=== PATIENT | male | born 1965 | race Caucasian/White ===

== ENCOUNTER 2018-03-25 08:02 | Emergency (ER) | payer OTHER ==
[~2018-03-25] VITALS: Ht 167.6 cm; Wt 86.2 kg
[~2018-03-25 08:02] MED LIST: ASPI81CH PO; CEPH500 PO; CETI10 PO; DESO.25TC TOP; INSULANPEN SC; LISI5 PO; METF500 PO; METO50 PO; Percocet 10-321 EACH PO
[2018-03-25 09:36] LABS: BASOPHILS ABSOLUTE AUTO 0.01 K/mm3 (0.00-0.23); BASOPHILS PERCENT AUTO 0 % (0-2); EOSINOPHILS ABSOLUTE AUTO 0.01 K/mm3 (0.00-0.68); EOSINOPHILS PERCENT AUTO 0 % (0-6); Hematocrit 25.6 % (37.0-53.0); Hemoglobin 9.5 g/dL (13.5-17.5); IMMATURE GRAN ABSOLUTE AUTO 0.05 K/mm3 (0.00-0.10); IMMATURE GRAN PERCENT AUTO 1 % (0-1); LYMPHOCYTES ABSOLUTE AUTO 0.22 K/mm3 (0.84-5.20); LYMPHOCYTES PERCENT AUTO 2 % (21-46); MONOCYTES ABSOLUTE AUTO 0.94 K/mm3 (0.16-1.47); MONOCYTES PERCENT AUTO 9 % (4-13); Mean Corpuscular HGB 32.5 pg (26.0-34.0); Mean Corpuscular HGB Conc 37.1 g/dL (31.5-36.5); Mean Corpuscular Volume 88 fL (80-100); Mean Platelet Volume 9.1 fL (9.1-12.4); NEUTROPHILS ABSOLUTE AUTO 9.57 K/mm3 (1.96-9.15); NEUTROPHILS PERCENT AUTO 89 % (41-73); Platelet Count 148 K/mm3 (150-400); RDW Coefficient Variation 10.9 % (11.7-14.2); RDW Standard Deviation 34.9 fL (35.1-46.3); Red Blood Cell Count 2.92 M/mm3 (4.30-5.90)
[2018-03-25 09:49] LABS: Albumin, Blood 2.6 g/dL (3.4-5.0); Albumin/Globulin Ratio 0.5 (0.8-1.8); Bilirubin, Total 0.2 mg/dL (0.1-1.0); Bun/Creatinine Ratio 27.8 (12.0-20.0); Calcium, Blood 8.2 mg/dL (8.5-10.1); Creatinine, Blood 2.48 mg/dL (0.60-1.20); Globulin, Blood 5.2 g/dL (2.2-4.0); Potassium, Blood 4.9 mmol/L (3.5-5.5); Total Protein, Blood 7.8 g/dL (6.4-8.2)
== END 2018-03-25 13:39 | disposition short-term general hospital (02) ==
LOC: ER 08:02
PROVIDERS: Emergency Medicine
DX: N13.30 Unspecified hydronephrosis (principal); N19 Unspecified kidney failure; Z79.899 Other long term (current) drug therapy; Z79.82 Long term (current) use of aspirin; Z79.84 Long term (current) use of oral hypoglycemic drugs; E11.9 Type 2 diabetes mellitus without complications; I10 Essential (primary) hypertension; F17.220 Nicotine dependence, chewing tobacco, uncomplicated
CPT/HCPCS: 74176; 80053; 85025; 99285

== ENCOUNTER 2018-12-08 05:55 | Emergency (ER) | payer OTHER ==
[~2018-12-08] VITALS: Ht 167.6 cm; Wt 77.1 kg
[2018-12-08] MEDS ORDERED: Prinivil10 MG PO (06:14)
[2018-12-08] MEDS ORDERED: TAMS.4ER PO (06:14)
[2018-12-08] MEDS ORDERED: INSULANPEN SC (06:14)
[2018-12-08 06:57] LABS: BASOPHILS ABSOLUTE AUTO 0.03 K/mm3 (0.00-0.23); BASOPHILS PERCENT AUTO 1 % (0-2); EOSINOPHILS ABSOLUTE AUTO 0.13 K/mm3 (0.00-0.68); EOSINOPHILS PERCENT AUTO 2 % (0-6); Hematocrit 34.4 % (37.0-53.0); Hemoglobin 11.5 g/dL (13.5-17.5); IMMATURE GRAN ABSOLUTE AUTO 0.02 K/mm3 (0.00-0.10); IMMATURE GRAN PERCENT AUTO 0 % (0-1); LYMPHOCYTES ABSOLUTE AUTO 1.53 K/mm3 (0.84-5.20); LYMPHOCYTES PERCENT AUTO 29 % (21-46); MONOCYTES ABSOLUTE AUTO 0.67 K/mm3 (0.16-1.47); MONOCYTES PERCENT AUTO 13 % (4-13); Mean Corpuscular HGB 31.7 pg (26.0-34.0); Mean Corpuscular HGB Conc 33.4 g/dL (31.5-36.5); Mean Corpuscular Volume 95 fL (80-100); Mean Platelet Volume 10.9 fL (9.1-12.4); NEUTROPHILS ABSOLUTE AUTO 2.96 K/mm3 (1.96-9.15); NEUTROPHILS PERCENT AUTO 55 % (41-73); Platelet Count 111 K/mm3 (150-400); RDW Coefficient Variation 12.3 % (11.7-14.2); RDW Standard Deviation 42.7 fL (35.1-46.3); Red Blood Cell Count 3.63 M/mm3 (4.30-5.90); White Blood Cell Count 5.34 K/mm3 (4.00-11.30)
[2018-12-08 07:18] LABS: Alanine Aminotransfer (ALT/SGP 26 U/L (12-78); Albumin, Blood 3.2 g/dL (3.4-5.0); Albumin/Globulin Ratio 0.8 (0.8-1.8); Alk Phos 143 U/L (50-136); Anion Gap 9 mmol/L (6-16); Aspartate Aminotrans (AST/SGOT 27 U/L (12-37); Bilirubin, Total 0.2 mg/dL (0.1-1.0); Blood Urea Nitrogen 19 mg/dL (8-24); Bun/Creatinine Ratio 22.2 (12.0-20.0); CO2, Blood 21 mmol/L (21-32); Calcium, Blood 7.8 mg/dL (8.5-10.1); Chloride, Blood 115 mmol/L (98-108); Creatinine, Blood 0.85 mg/dL (0.60-1.20); Ethanol (Alcohol), Blood, Med 281 mg/dL; Globulin, Blood 3.8 g/dL (2.2-4.0); Glomerular Filtration Rate >60 (60-); Glucose, Blood 329 mg/dL (70-99); Sodium, Blood 145 mmol/L (136-145); Troponin I <0.015 ng/mL (0.000-0.040)
== END 2018-12-08 09:14 | disposition left against medical advice (07) ==
LOC: ER 05:55
PROVIDERS: Emergency Medicine
DX: S06.9X9A Unspecified intracranial injury with loss of consciousness of unspecified duration, initial encounter (principal); R55 Syncope and collapse; F10.129 Alcohol abuse with intoxication, unspecified; W18.30XA Fall on same level, unspecified, initial encounter; E11.9 Type 2 diabetes mellitus without complications; I10 Essential (primary) hypertension; Z79.899 Other long term (current) drug therapy; Z79.4 Long term (current) use of insulin; Z79.84 Long term (current) use of oral hypoglycemic drugs
CPT/HCPCS: 70450; 71046; 72100; 72125; 80053; 84484; 85025; 96360; 96361; 99284-25; G0480; J7030

== ENCOUNTER 2019-06-07 12:01 | Inpatient (IN) | payer OTHER ==
[~2019-06-07] VITALS: Ht 167.6 cm; Wt 79.2 kg
[~2019-06-07 12:01] MED LIST changes: +Prinivil10 MG PO; +TAMS.4ER PO
[2019-06-07 12:38] LABS: BASOPHILS ABSOLUTE AUTO 0.01 K/mm3 (0.00-0.23); BASOPHILS PERCENT AUTO 0 % (0-2); EOSINOPHILS ABSOLUTE AUTO 0.02 K/mm3 (0.00-0.68); EOSINOPHILS PERCENT AUTO 0 % (0-6); Hematocrit 20.4 % (37.0-53.0); IMMATURE GRAN ABSOLUTE AUTO 0.09 K/mm3 (0.00-0.10); IMMATURE GRAN PERCENT AUTO 1 % (0-1); LYMPHOCYTES ABSOLUTE AUTO 0.63 K/mm3 (0.84-5.20); LYMPHOCYTES PERCENT AUTO 9 % (21-46); MONOCYTES ABSOLUTE AUTO 0.89 K/mm3 (0.16-1.47); MONOCYTES PERCENT AUTO 13 % (4-13); Mean Corpuscular HGB 32.4 pg (26.0-34.0); Mean Corpuscular HGB Conc 34.3 g/dL (31.5-36.5); Mean Corpuscular Volume 94 fL (80-100); Mean Platelet Volume 10.6 fL (9.1-12.4); NEUTROPHILS ABSOLUTE AUTO 5.17 K/mm3 (1.96-9.15); NEUTROPHILS PERCENT AUTO 76 % (41-73); Platelet Count 166 K/mm3 (150-400); RDW Coefficient Variation 11.9 % (11.7-14.2); RDW Standard Deviation 40.4 fL (35.1-46.3); Red Blood Cell Count 2.16 M/mm3 (4.30-5.90); White Blood Cell Count 6.81 K/mm3 (4.00-11.30)
[2019-06-07 12:52] LABS: Alanine Aminotransfer (ALT/SGP 15 U/L (12-78); Albumin, Blood 2.6 g/dL (3.4-5.0); Albumin/Globulin Ratio 0.6 (0.8-1.8); Alk Phos 191 U/L (50-136); Aspartate Aminotrans (AST/SGOT 10 U/L (12-37); Bilirubin, Total 0.3 mg/dL (0.1-1.0); Blood Urea Nitrogen 31 mg/dL (8-24); CO2, Blood 21 mmol/L (21-32); Calcium, Blood 8.3 mg/dL (8.5-10.1); Chloride, Blood 86 mmol/L (98-108); Creatinine, Blood 1.35 mg/dL (0.60-1.20); Globulin, Blood 4.3 g/dL (2.2-4.0); Glomerular Filtration Rate 58 (60-); Potassium, Blood 5.3 mmol/L (3.5-5.5); Total Protein, Blood 6.9 g/dL (6.4-8.2)
[2019-06-07 12:53] LABS: Source, Urine Clean Catch
[2019-06-07 12:54] LABS: Anion Gap 12 mmol/L (6-16); Glucose, Blood 936 mg/dL (70-99); Sodium, Blood 119 mmol/L (136-145)
[2019-06-07 12:57] LABS: Beta-hydroxybutyrate 30.7 mg/dL (0.2-2.8); Troponin I <0.015 ng/mL (0.000-0.040)
[2019-06-07 12:58] LABS: Appearance, Urine Hazy (Clear); Bilirubin, Urine Neg (Neg); Blood, Urine 3+ (Neg); Color, Urine Yellow (P-Yellow); Glucose Qualitative, Urine 4+ (Neg); Ketones, Urine 2+ (Neg); Leukocyte Esterase, Urine 3+ (Neg); Nitrite, Urine Neg (Neg); Protein, Urine 1+ (Neg); Specific Gravity, Urine 1.005 (1.003-1.022); Urobilinogen, Urine NORM (Normal)
[2019-06-07 13:04] LABS: International Normalized Ratio 0.97; Prothrombin Time Results 10.3 Sec (9.7-11.5)
[2019-06-07 13:14] LABS: Squamous Epithelial Cells Few /hpf (Few); White Blood Cells, Urine TNTC /hpf (0-5)
[2019-06-07 13:15] LABS: Bacteria Mod /hpf
[2019-06-07 17:05] LABS: Hemoglobin 6.2 g/dL (13.5-17.5)
[2019-06-07 17:07] LABS: Hematocrit 17.2 % (37.0-53.0)
[2019-06-07 17:24] LABS: Anion Gap 7 mmol/L (6-16); Blood Urea Nitrogen 27 mg/dL (8-24); Bun/Creatinine Ratio 22.5 (12.0-20.0); CO2, Blood 22 mmol/L (21-32); Calcium, Blood 8.1 mg/dL (8.5-10.1); Chloride, Blood 101 mmol/L (98-108); Glomerular Filtration Rate >60 (60-); Glucose, Blood 440 mg/dL (70-99)
[2019-06-07 17:36] LABS: Sodium, Blood 130 mmol/L (136-145)
--- NOTE | 2019-06-07 18:12 | NUR ---
ADMISSION / SHIFT SUMMARY: REPORT RECEIVED FROM TYLER Lainez RN IN ED. PT ARRIVED TO ICU-03 AT APPROX 1500, TX FROM GURNEY TO BED W/ 4 ASSIST & SLIDER SHEET. PT STS HAVING SOME CHRONIC BACK PAIN THAT HAS BEEN WORSENED BY LAYING ON GURNEY THIS AFTERNOON. INSULIN DRIP INFUSING AT 5 UNITS/HR ON ARRIVAL. CBG CHECKS Q1H, INSULIN TITRATION DOCUMENTED IN FLOWSHEET. PT HAS BEEN ASYMPTOMATIC OF SLIGHT HYPOTENSION SINCE ARRIVAL, SBP 80-90s. FIRST UNIT OF PRBC's INFUSING AT THIS TIME. LAB DRAWS TO BE COMPLETED AFTER TRANSFUSION COMPLETED. CT ABD & PELVIS COMPLETED, RESULTS CONCERNING FOR URINARY RETENTION. WILL BLADDER SCAN PT & NOTIFY DR MENESES. WILL CONTINUE TO MONITOR & REPORT OFF TO ONCOMING RN.
[2019-06-07 20:16] LABS: Anion Gap 6 mmol/L (6-16); Blood Urea Nitrogen 23 mg/dL (8-24); Bun/Creatinine Ratio 19.8 (12.0-20.0); CO2, Blood 23 mmol/L (21-32); Calcium, Blood 7.8 mg/dL (8.5-10.1); Chloride, Blood 106 mmol/L (98-108); Creatinine, Blood 1.16 mg/dL (0.60-1.20); Glomerular Filtration Rate >60 (60-); Glucose, Blood 262 mg/dL (70-99); Potassium, Blood 3.7 mmol/L (3.5-5.5); Sodium, Blood 135 mmol/L (136-145)
--- NOTE | 2019-06-07 20:49 | NUR ---
ASSUMED CARE OF PT, REPORT RCV'D FROM MARIS BOONE. PT ALERT/ORIENTED SITTING UP IN BED. PT APPEARS PALE IN COLOR AND COMPLAINS OF MID-LOWER BACK PAIN. PT REPORTS THAT HE HAS CHRONIC BACK PAIN BUT THAT THE PAIN HAS INTENSIFIED OVER THE PREVIOUS 2 DAYS. PT RECEIVING UNIT 2 OF 2 PRBC'S. CBG 269 ON 3 UNITS INSULIN, WILL SWITCH TO HOME LANTUS DOSE WHEN BG<250 AND D/C INSULIN GTT 2 HOURS AFTER. PT HAS PERIODS OF HYPOTENSION WITH MAP MAINTAINED ABOVE 65, WILL CONTINUE TO MONITOR. BT+ IN ALL 4-QUADRANTS, PT DENIES PAIN/TENDERNESS WITH PALPATION. WILL BLADDER SCAN Q6H AND STRAIGHT CATH PER DR. MENESES'S ORDERS. SEE FULL SHIFT ASSESSMENT.
[2019-06-08 00:16] LABS: Hematocrit 22.5 % (37.0-53.0); Hemoglobin 7.9 g/dL (13.5-17.5)
[2019-06-08 01:04] LABS: Anion Gap 10 mmol/L (6-16); Blood Urea Nitrogen 21 mg/dL (8-24); Bun/Creatinine Ratio 19.6 (12.0-20.0); CO2, Blood 21 mmol/L (21-32); Calcium, Blood 7.6 mg/dL (8.5-10.1); Chloride, Blood 111 mmol/L (98-108); Creatinine, Blood 1.07 mg/dL (0.60-1.20); Glomerular Filtration Rate >60 (60-); Glucose, Blood 130 mg/dL (70-99); Potassium, Blood 3.9 mmol/L (3.5-5.5); Sodium, Blood 142 mmol/L (136-145)
[2019-06-08 05:24] LABS: Source, Urine Catheter
[2019-06-08 05:27] LABS: Appearance, Urine Turbid (Clear); Bilirubin, Urine Neg (Neg); Blood, Urine 5+ (Neg); Color, Urine Yellow (P-Yellow); Glucose Qualitative, Urine 4+ (Neg); Ketones, Urine 2+ (Neg); Leukocyte Esterase, Urine 3+ (Neg); Nitrite, Urine Neg (Neg); Protein, Urine 3+ (Neg); Specific Gravity, Urine 1.015 (1.003-1.022); Urobilinogen, Urine NORM (Normal)
[2019-06-08 05:36] LABS: White Blood Cells, Urine TNTC /hpf (0-5)
[2019-06-08 05:37] LABS: Bacteria Many /hpf; Red Blood Cells, Urine 0-2 /hpf (0-2); Squamous Epithelial Cells Not Seen /hpf (Few)
[2019-06-08 06:23] LABS: Hematocrit 22.7 % (37.0-53.0)
--- NOTE | 2019-06-08 06:32 | NUR ---
SHIFT SUMMARY PT STABLE T/O SHIFT. INSULIN GTT OFF @2300, MIDNIGHT CBG 127, 0600 CBG 207. 0000 BLADDER SCAN REVEALED >547 URINE RETAINED AFTER PT VOIDED 700 ML. URINE IS TURBID/PURULENT. COUDE' USED TO STRAIGHT CATH PT D/T PT'S BPH AND PT'S REPORT THAT HE HAS HAD DIFFICULTY WITH URINARY CATHETER INSERTION. CALL PLACED TO DR. HILL REGARDING DIFFICULTY IN INSERTING COUDE' AND APPEARANCE OF PT'S URINE. ORDER FOR WRIGHT PLACEMENT AND URINE SAMPLE RECEIVED. PT CONTINUES TO C/O BACK PAIN AND WAS TREATED WITH ULTRAM ON 2 OCCASIONS WITH MINIMAL RELIEF. PT WAS FOUND TO BE CHEWING TOBACCO IN BED AND WAS REMINDED OF THE RISKS ASSOCIATED WITH CHEWING, ESPECIALLY GIVEN HIS CURRENT MEDICAL STATUS. PT STATES UNDERSTANDING AND REPLIED "I ONLY PUT A LITTLE IN". WILL REPORT TO DAYSHIFT NURSE.
--- NOTE | 2019-06-08 07:45 | NUR ---
IN ICU ROOM 3 . VSS PRE PROCEDURES BEING DONE AT THIS TIME
--- NOTE | 2019-06-08 07:52 | NUR ---
ASSUMED CARE / DAY SURGERY: REPORT RECEIVED FROM MONIKA Desai RN. ASSUMED CARE OF THIS PT AT APPROX 0700. ON ASSESSMENT, THE PT IS AWAKE, A&O. HE IS COOPERATIVE W/ CARE. PT STS CONTINUED BACK PAIN THAT IMPROVED SLIGHTLY DURING THE NIGHT, BUT HAS WORSENED AGAIN THIS AM. PT HAD COUDE WRIGHT PLACED BY NOC SHIFT RN FOR CONTINUED HIGH POST-VOID RESIDUALS NOTED W/ BLADDER SCAN. HE CONTINUES ON RA W/ O2 SATS > 92%. MONITOR SHOWS NSR W/ HR 80s. BP STABLE. CALL FROM [facility] DAY SURGERY RN. PLAN IS TO COMPLETE AN UPPER ENDOSCOPY THIS AM PER DR SALCIDO. DAY SURGERY TEAM IS AT BEDSIDE & COMPLETING SETUP FOR PROCEDURE. PROVIDER LOLY IS AT BEDSIDE COMPLETING INFORMED CONSENT. DR SANTANA TO BE ANESTHESIOLOGIST FOR PROCEDURE. WILL CONTINUE TO MONITOR & PROVIDE ASSISTANCE PRN/
--- NOTE | 2019-06-08 08:24 | NUR ---
06/08/19 0824 Go Biswas Bite Block PlacedHistory, Chart, Medications and Allergies reviewed before start of procedure.MONITOR INTACT WITH CONTINUOUS PULSE OXIMETRY AND INTERMITTENT BP.O2 VIA N/C INTACT THROUGHOUT SEDATION/PROCEDURE.See Anesthesia record.
--- NOTE | 2019-06-08 08:49 | NUR ---
DR MENESES / DR SALCIDO: PROVIDER AT BEDSIDE TO SEE PT, PROCEDURE CURRENTLY IN PROGRESS. SHE STS THAT IF EGD IS UNREMARKABLE, PT MAY BE PCU STATUS IF OKAY W/ DR SALCIDO. PROCEDURE HAS BEEN COMPLETED. DR SALCIDO STS NO BLEEDING AREAS HAVE BEEN FOUND. OCTREOTIDE DRIP TO BE D/C'd, PROTONIX DRIP D/C'd & ORDERED IVP BID. CLEAR LIQUID DIET ORDERED & PT IS OKAY TO TRANSFER TO PCU STATUS. WILL CONTINUE TO MONITOR & UPDATE NEEDED.
--- NOTE | 2019-06-08 15:50 | NUR ---
PT TRANSFERRED OUT TO U-12. PAOLO TO REPORT OFF TO REC'CHASE POLLOCK.
--- NOTE | 2019-06-08 16:30 | NUR ---
ASSUMED CARE PT ALERT AND ORIENTED. VS STABLE. PT DENIES ANY N/V. BP STABLE. CBG OF 407. DR. MENESES CALLED AND ORDERS FOR SLIDING SCALE COVERAGE PLACED. PT ORIENTED TO UNIT. PT DENIES ANY PAIN. WILL CONTINUE TO MONITOR.
[2019-06-08 18:04] LABS: Hematocrit 25.6 % (37.0-53.0); Hemoglobin 8.7 g/dL (13.5-17.5)
--- NOTE | 2019-06-08 21:42 | NUR ---
PROVIDER. CB 429. ORDERED HUMAOLG AND LANTUS GIVEN. DR DUFFY CALLED REGARDING THIS LEVEL. DOES NOT PLACE NEW ORDER. STATES TO RECHECK IN AM.
--- NOTE | 2019-06-09 00:47 | NUR ---
PROVIDER 0005 CBG RECHECKED, 316. ROMEO NOTIFIED, ORDERS PLACED TO INCREASE PT'S SLIDING SCALE TO HIGH SS AND TO DOSE PT NOW WITH THAT SCALE. STATES TO RECHECK SCHEDULED ACHS.
[2019-06-09 03:30] LABS: Hematocrit 23.9 % (37.0-53.0); Hemoglobin 8.2 g/dL (13.5-17.5)
--- NOTE | 2019-06-09 04:32 | NUR ---
END OF SHIFT SUMMARY NO ACUTE CHANGES THIS SHIFT. VSS. PT VERY PLEASANT AND COOPERATIVE. HR REMAINS SINUS RHTYHM. REMAINS ON RA. PICC PATENT AND PULLS BLOOD. PT HAS NOT HAD ANY INCIDENCE OF BLEEDING FROM MOUTH THIS SHIFT. WRIGHT PRESENT AND CONTINUES TO DRAIN. PT HAS REQUIRED EXTRA HUMALOG COVERAGE THIS SHIFT AND HE HAS NOW BEEN PLACED ON A HIGH SLIDING SCALE INSTEAD OF MEDIUM SS. OTHER THAN THIS, PT USES CALL LIGHT APPROPRIATELY AND HAS BEEN ATTEMPTING TO SLEEP WITH DOOR CLOSED. CALL LIGHT WOTHIN REACH AND BED IN LOWEST POSITION. WILL CONTINUE TO MONITOR PT UNTIL SHIFT CHANGE.
[2019-06-09 05:16] LABS: Hematocrit 23.6 % (37.0-53.0); Hemoglobin 8.3 g/dL (13.5-17.5)
[2019-06-09 05:45] LABS: Anion Gap 6 mmol/L (6-16); Blood Urea Nitrogen 12 mg/dL (8-24); Bun/Creatinine Ratio 12.8 (12.0-20.0); CO2, Blood 24 mmol/L (21-32); Calcium, Blood 8.4 mg/dL (8.5-10.1); Chloride, Blood 109 mmol/L (98-108); Creatinine, Blood 0.94 mg/dL (0.60-1.20); Glomerular Filtration Rate >60 (60-); Glucose, Blood 90 mg/dL (70-99); Sodium, Blood 139 mmol/L (136-145)
--- NOTE | 2019-06-09 09:42 | NUR ---
DR MENESES BEEN TO SEE PT. REPORTS TO Mariana/Shruti WRIGHT.
--- NOTE | 2019-06-09 10:25 | NUR ---
KYLE HAY'Mariana PER DR MENESES.
[2019-06-09] MEDS ORDERED: Humalog100 UNIT/1 SC (13:47)
[2019-06-09] MEDS ORDERED: PANT40 PO (13:48)
[2019-06-09] MEDS ORDERED: Amoxicillin500 MG PO (13:56)
--- NOTE | 2019-06-09 15:25 | NUR ---
DISCHARGE: PT AND GREGG REPORTS UNDERSTANDING OF DISCHARGE INSTRUCTIONS. PT PICC LINE DC'D BY PRECIPITATE WASHER. PT MEDS FAXED TO PHARMACY OF PT'S CHOICE. PT SENT WITH [facility]CR[facility]TS FOR CBG MACHINE AND STRIPS. PT EATING AND DRINKING WELL. UP IND WITH STEADY GAIT. PT VOIDING AFTER HAVING CATHETER DC'D.
== END 2019-06-09 15:23 | disposition home or self-care (01) | DRG 811 ==
LOC: ER 12:01 → ICUE 13:57 → PCU 13:57 → ICUW 13:57 → ICUE 14:57 → PCU 06-08 15:57
PROVIDERS: Emergency Medicine; Internal Medicine; Internal Medicine Gastroenterology; ADMIT Internal Medicine
PROC: 30233N1 Transfusion of Nonautologous Red Blood Cells into Peripheral Vein, Percutaneous Approach (ICD-10-PCS; 2019-06-07)
PROC: 0DJ08ZZ Inspection of Upper Intestinal Tract, Via Natural or Artificial Opening Endoscopic (ICD-10-PCS; principal; 2019-06-08 08:00)
DX: D62 Acute posthemorrhagic anemia (principal); E11.10 Type 2 diabetes mellitus with ketoacidosis without coma; N17.9 Acute kidney failure, unspecified; E87.1 Hypo-osmolality and hyponatremia; N39.0 Urinary tract infection, site not specified; K76.6 Portal hypertension; N13.30 Unspecified hydronephrosis; J43.9 Emphysema, unspecified; N40.0 Benign prostatic hyperplasia without lower urinary tract symptoms; Z79.4 Long term (current) use of insulin; I10 Essential (primary) hypertension; E11.65 Type 2 diabetes mellitus with hyperglycemia; K29.80 Duodenitis without bleeding; K70.30 Alcoholic cirrhosis of liver without ascites; R16.1 Splenomegaly, not elsewhere classified; E86.0 Dehydration; N13.9 Obstructive and reflux uropathy, unspecified
CPT/HCPCS: 36415; 36430; 36569; 51701; 51703; 71046; 74176; 80048; 80053; 81001; 82010; 82272; 82800; 82947; 83605; 84484; 85014; 85018; 85025; 85610; 85730; 86850; 86900; 86901; 86923; 87040; 87086; 87147; 93005; 93010; 96361; 96365; 99285-25; A9270; C1751; C9113; J0696; J1815; J2250; J2354; J2704; J7030; J7050; J7120; P9016

== ENCOUNTER 2020-10-19 13:25 | Emergency (ER) | payer OTHER ==
[~2020-10-19] VITALS: Ht 167.6 cm; Wt 78.0 kg
[~2020-10-19 13:25] MED LIST changes: +Amoxicillin500 MG PO; +Humalog100 UNIT/1 SC; +PANT40 PO
[2020-10-19 16:04] LABS: Glucose, Blood 657 mg/dL (70-99)
== END 2020-10-19 17:12 | disposition home or self-care (01) ==
LOC: ER 13:25
PROVIDERS: Physician Assistant
DX: S00.81XA Abrasion of other part of head, initial encounter (principal); I10 Essential (primary) hypertension; E11.9 Type 2 diabetes mellitus without complications; Z79.899 Other long term (current) drug therapy; Z79.4 Long term (current) use of insulin; Z91.14 Patient's other noncompliance with medication regimen; W01.198A Fall on same level from slipping, tripping and stumbling with subsequent striking against other object, initial encounter
CPT/HCPCS: 70450; 82947; 99284-25

== ENCOUNTER 2021-04-27 18:47 | Emergency (ER) | payer OTHER ==
[~2021-04-27] VITALS: Ht 165.1 cm; Wt 72.6 kg
[2021-04-27 19:27] LABS: BASOPHILS ABSOLUTE AUTO 0.03 K/mm3 (0.00-0.23); BASOPHILS PERCENT AUTO 0 % (0-2); EOSINOPHILS ABSOLUTE AUTO 0.16 K/mm3 (0.00-0.68); EOSINOPHILS PERCENT AUTO 2 % (0-6); Hematocrit 30.5 % (37.0-53.0); IMMATURE GRAN ABSOLUTE AUTO 0.02 K/mm3 (0.00-0.10); IMMATURE GRAN PERCENT AUTO 0 % (0-1); LYMPHOCYTES ABSOLUTE AUTO 0.87 K/mm3 (0.84-5.20); LYMPHOCYTES PERCENT AUTO 12 % (21-46); MONOCYTES ABSOLUTE AUTO 0.98 K/mm3 (0.16-1.47); MONOCYTES PERCENT AUTO 13 % (4-13); Mean Corpuscular HGB 34.3 pg (26.0-34.0); Mean Corpuscular HGB Conc 36.1 g/dL (31.5-36.5); Mean Corpuscular Volume 95 fL (80-100); Mean Platelet Volume 12.1 fL (9.1-12.4); NEUTROPHILS ABSOLUTE AUTO 5.52 K/mm3 (1.96-9.15); NEUTROPHILS PERCENT AUTO 73 % (41-73); Platelet Count 113 K/mm3 (150-400); Red Blood Cell Count 3.21 M/mm3 (4.30-5.90); White Blood Cell Count 7.58 K/mm3 (4.00-11.30)
[2021-04-27 19:38] LABS: Base Excess Venous -1.4 mmol/L; Bicarbonate Venous 23.7 mmol/L (24.0-30.0); PO2 Venous 161 mmHg (38-42); pH Blood Venous 7.45 (7.34-7.37)
[2021-04-27 19:43] LABS: Alanine Aminotransfer (ALT/SGP 49 U/L (12-78); Albumin, Blood 3.5 g/dL (3.4-5.0); Albumin/Globulin Ratio 0.8 (0.8-1.8); Alk Phos 132 U/L (50-136); Anion Gap 13 mmol/L (6-16); Aspartate Aminotrans (AST/SGOT 43 U/L (12-37); Bilirubin, Total 0.8 mg/dL (0.1-1.0); Blood Urea Nitrogen 45 mg/dL (8-24); Bun/Creatinine Ratio 22.1 (12.0-20.0); CO2, Blood 21 mmol/L (21-32); Calcium, Blood 9.2 mg/dL (8.5-10.1); Chloride, Blood 98 mmol/L (98-108); Creatinine, Blood 2.04 mg/dL (0.60-1.20); Globulin, Blood 4.3 g/dL (2.2-4.0); Glomerular Filtration Rate 34 (60-); Glucose, Blood 515 mg/dL (70-99); Potassium, Blood 3.8 mmol/L (3.5-5.5); Sodium, Blood 132 mmol/L (136-145); Total Protein, Blood 7.8 g/dL (6.4-8.2)
[2021-04-27 19:47] LABS: Ethanol (Alcohol), Blood, Med <3 mg/dL
[2021-04-27 20:35] LABS: U Amphetamine Screen Not Detected; U Barbituate Screen Not Detected; U Benzodiazapine Screen Not Detected; U Buprenorphine Screen Not Detected; U Cannabinoids Screen Not Detected; U Cocaine Screen Not Detected; U Methadone Screen Not Detected; U Methamphetamine Screen Not Detected; U Opiates Screen Not Detected; U Oxycodone Screen Not Detected; U Phencyclidine Screen Not Detected; U Propoxyphene Screen Not Detected
== END 2021-04-27 21:19 | disposition home or self-care (01) ==
LOC: ER 18:47
PROVIDERS: Emergency Medicine
DX: E11.65 Type 2 diabetes mellitus with hyperglycemia (principal); I10 Essential (primary) hypertension
CPT/HCPCS: 36415; 80053; 82803; 82947; 85025; 93005; 93010; 99285-25; G0480; J1815; J7030

== ENCOUNTER 2021-04-29 22:00 | Emergency (ER) | payer OTHER ==
[~2021-04-29] VITALS: Ht 167.6 cm; Wt 77.1 kg
[2021-04-29 22:39] LABS: Base Excess Venous -4.7 mmol/L; Bicarbonate Venous 21.2 mmol/L (24.0-30.0); PCO2 Venous 30.8 mmHg (38-42); PO2 Venous 146 mmHg (38-42); pH Blood Venous 7.42 (7.34-7.37)
[2021-04-29 22:43] LABS: BASOPHILS ABSOLUTE AUTO 0.03 K/mm3 (0.00-0.23); BASOPHILS PERCENT AUTO 1 % (0-2); EOSINOPHILS ABSOLUTE AUTO 0.14 K/mm3 (0.00-0.68); EOSINOPHILS PERCENT AUTO 3 % (0-6); Hematocrit 29.6 % (37.0-53.0); Hemoglobin 10.4 g/dL (13.5-17.5); IMMATURE GRAN ABSOLUTE AUTO 0.02 K/mm3 (0.00-0.10); IMMATURE GRAN PERCENT AUTO 0 % (0-1); LYMPHOCYTES PERCENT AUTO 13 % (21-46); MONOCYTES ABSOLUTE AUTO 0.64 K/mm3 (0.16-1.47); MONOCYTES PERCENT AUTO 12 % (4-13); Mean Corpuscular HGB 34.4 pg (26.0-34.0); Mean Corpuscular HGB Conc 35.1 g/dL (31.5-36.5); Mean Corpuscular Volume 98 fL (80-100); Mean Platelet Volume 11.6 fL (9.1-12.4); NEUTROPHILS ABSOLUTE AUTO 3.96 K/mm3 (1.96-9.15); NEUTROPHILS PERCENT AUTO 72 % (41-73); Platelet Count 109 K/mm3 (150-400); RDW Coefficient Variation 12.2 % (11.7-14.2); RDW Standard Deviation 44.2 fL (35.1-46.3); Red Blood Cell Count 3.02 M/mm3 (4.30-5.90); White Blood Cell Count 5.49 K/mm3 (4.00-11.30)
[2021-04-29 23:02] LABS: Alanine Aminotransfer (ALT/SGP 51 U/L (12-78); Albumin, Blood 3.3 g/dL (3.4-5.0); Albumin/Globulin Ratio 0.8 (0.8-1.8); Alk Phos 128 U/L (50-136); Anion Gap 13 mmol/L (6-16); Aspartate Aminotrans (AST/SGOT 41 U/L (12-37); Bilirubin, Total 0.7 mg/dL (0.1-1.0); Blood Urea Nitrogen 44 mg/dL (8-24); Bun/Creatinine Ratio 36.7 (12.0-20.0); CO2, Blood 20 mmol/L (21-32); Calcium, Blood 9.3 mg/dL (8.5-10.1); Chloride, Blood 106 mmol/L (98-108); Globulin, Blood 4.3 g/dL (2.2-4.0); Glomerular Filtration Rate >60 (60-); Glucose, Blood 354 mg/dL (70-99); Potassium, Blood 3.8 mmol/L (3.5-5.5); Sodium, Blood 139 mmol/L (136-145); Total Protein, Blood 7.6 g/dL (6.4-8.2)
[2021-04-30 01:25] LABS: Source, Urine Clean Catch
[2021-04-30 01:30] LABS: Bilirubin, Urine Neg (Neg); Blood, Urine 5+ (Neg); Glucose Qualitative, Urine 4+ (Neg); Ketones, Urine 2+ (Neg); Leukocyte Esterase, Urine 2+ (Neg); Nitrite, Urine Neg (Neg); Protein, Urine 2+ (Neg); Specific Gravity, Urine 1.015 (1.003-1.022); Urobilinogen, Urine NORM (Normal)
[2021-04-30 01:35] LABS: Appearance, Urine Hazy (Clear); Color, Urine Yellow (P-Yellow)
[2021-04-30 01:36] LABS: Amorphous Mod (0-Heavy); Bacteria Mod /hpf; Red Blood Cells, Urine 0-2 /hpf (0-2); Squamous Epithelial Cells Rare /hpf (Few); White Blood Cells, Urine 50-100 /hpf (0-5)
[2021-04-30] MEDS ORDERED: Flomax0.4 MG PO (01:36)
[2021-04-30] MEDS ORDERED: AMOCLA875 PO (02:20)
[2021-05-01] MEDS ORDERED: CEFP200 PO (00:40)
== END 2021-04-30 02:46 | disposition home or self-care (01) ==
LOC: ER 22:00
PROVIDERS: Physician Assistant
DX: N39.0 Urinary tract infection, site not specified (principal); E11.9 Type 2 diabetes mellitus without complications; I10 Essential (primary) hypertension; J32.9 Chronic sinusitis, unspecified; Z79.4 Long term (current) use of insulin; Z79.899 Other long term (current) drug therapy
CPT/HCPCS: 36415; 70450; 80053; 81001; 82010; 82803; 82947; 85025; 87077; 87086; 87186; 93005; 93010; 99285-25; A9270

== ENCOUNTER 2021-04-30 16:17 | Emergency (ER) | payer OTHER ==
[~2021-04-30] VITALS: Ht 165.1 cm; Wt 73.9 kg
[~2021-04-30 16:17] MED LIST changes: +AMOCLA875 PO; +Flomax0.4 MG PO
[2021-04-30 16:51] LABS: BASOPHILS ABSOLUTE AUTO 0.03 K/mm3 (0.00-0.23); BASOPHILS PERCENT AUTO 1 % (0-2); EOSINOPHILS PERCENT AUTO 2 % (0-6); Hemoglobin 10.5 g/dL (13.5-17.5); IMMATURE GRAN ABSOLUTE AUTO 0.01 K/mm3 (0.00-0.10); IMMATURE GRAN PERCENT AUTO 0 % (0-1); LYMPHOCYTES ABSOLUTE AUTO 0.66 K/mm3 (0.84-5.20); LYMPHOCYTES PERCENT AUTO 11 % (21-46); MONOCYTES ABSOLUTE AUTO 0.67 K/mm3 (0.16-1.47); MONOCYTES PERCENT AUTO 11 % (4-13); Mean Corpuscular HGB 34.1 pg (26.0-34.0); Mean Corpuscular Volume 97 fL (80-100); Mean Platelet Volume 11.9 fL (9.1-12.4); NEUTROPHILS ABSOLUTE AUTO 4.59 K/mm3 (1.96-9.15); NEUTROPHILS PERCENT AUTO 76 % (41-73); Platelet Count 114 K/mm3 (150-400); RDW Standard Deviation 43.2 fL (35.1-46.3); Red Blood Cell Count 3.08 M/mm3 (4.30-5.90); White Blood Cell Count 6.06 K/mm3 (4.00-11.30)
[2021-04-30 16:59] LABS: Source, Urine Catheter
[2021-04-30 17:03] LABS: Alanine Aminotransfer (ALT/SGP 44 U/L (12-78); Albumin, Blood 3.4 g/dL (3.4-5.0); Albumin/Globulin Ratio 0.8 (0.8-1.8); Alk Phos 117 U/L (50-136); Anion Gap 14 mmol/L (6-16); Aspartate Aminotrans (AST/SGOT 38 U/L (12-37); Bilirubin, Total 0.8 mg/dL (0.1-1.0); Blood Urea Nitrogen 42 mg/dL (8-24); Bun/Creatinine Ratio 34.7 (12.0-20.0); CO2, Blood 19 mmol/L (21-32); Chloride, Blood 101 mmol/L (98-108); Creatinine, Blood 1.21 mg/dL (0.60-1.20); Glomerular Filtration Rate >60 (60-); Glucose, Blood 412 mg/dL (70-99); Potassium, Blood 4.1 mmol/L (3.5-5.5); Sodium, Blood 134 mmol/L (136-145); Total Protein, Blood 7.4 g/dL (6.4-8.2)
[2021-04-30 17:08] LABS: Appearance, Urine Hazy (Clear); Bilirubin, Urine Neg (Neg); Blood, Urine 5+ (Neg); Color, Urine Yellow (P-Yellow); Glucose Qualitative, Urine 4+ (Neg); Ketones, Urine 2+ (Neg); Leukocyte Esterase, Urine 3+ (Neg); Nitrite, Urine Neg (Neg); Protein, Urine 2+ (Neg); Specific Gravity, Urine 1.015 (1.003-1.022); Urobilinogen, Urine NORM (Normal)
[2021-04-30 17:28] LABS: U Amphetamine Screen Not Detected; U Methamphetamine Screen Not Detected
[2021-04-30 17:29] LABS: U Barbituate Screen Not Detected; U Benzodiazapine Screen Not Detected; U Buprenorphine Screen Not Detected; U Cannabinoids Screen Not Detected; U Cocaine Screen Not Detected; U Methadone Screen Not Detected; U Opiates Screen Not Detected; U Oxycodone Screen Not Detected; U Phencyclidine Screen Not Detected; U Propoxyphene Screen Not Detected
[2021-04-30 17:42] LABS: Bacteria Many /hpf; Squamous Epithelial Cells Few /hpf (Few); White Blood Cells, Urine 50-100 /hpf (0-5)
[2021-04-30 17:57] LABS: Acetaminophen, Random <2.0 ug/mL (10.0-30.0); Ethanol (Alcohol), Blood, Med <3 mg/dL; Salicylate 2.3 mg/dL (2.8-20.0)
[2021-04-30 22:54] LABS: Bicarbonate Venous 19.4 mmol/L (24.0-30.0); PCO2 Venous 43.8 mmHg (38-42); PO2 Venous 56.7 mmHg (38-42); pH Blood Venous 7.28 (7.34-7.37)
[2021-04-30 23:15] LABS: Glucose, Blood 318 mg/dL (70-99)
[2021-04-30 23:34] LABS: Anion Gap 12 mmol/L (6-16); Blood Urea Nitrogen 37 mg/dL (8-24); Bun/Creatinine Ratio 35.2 (12.0-20.0); CO2, Blood 21 mmol/L (21-32); Calcium, Blood 8.8 mg/dL (8.5-10.1); Chloride, Blood 103 mmol/L (98-108); Creatinine, Blood 1.05 mg/dL (0.60-1.20); Glomerular Filtration Rate >60 (60-); Potassium, Blood 3.7 mmol/L (3.5-5.5); Sodium, Blood 136 mmol/L (136-145)
[2021-05-01] MEDS ORDERED: CEFP200 PO (00:40)
== END 2021-05-01 01:20 | disposition home or self-care (01) ==
LOC: ER 16:17
PROVIDERS: Physician Assistant
DX: N39.0 Urinary tract infection, site not specified (principal); E11.65 Type 2 diabetes mellitus with hyperglycemia; E11.10 Type 2 diabetes mellitus with ketoacidosis without coma; I10 Essential (primary) hypertension; Z79.4 Long term (current) use of insulin
CPT/HCPCS: 80048; 80053; 81001; 82140; 82803; 82947; 85025; 87086; 96365; 99285-25; A9270; G0480; J0696; J1815; J3480; J7030; Q3014

== ENCOUNTER 2021-05-24 20:19 | Inpatient (IN) | payer OTHER ==
[~2021-05-24] VITALS: Ht 157.5 cm; Wt 77.1 kg
[~2021-05-24 20:19] MED LIST changes: +CEFP200 PO
[2021-05-24 21:45] LABS: Calcium, Ionized (POC) 1.12 mmol/L (1.10-1.46); Chloride (POC) 99 mmol/L (98-108); Glucose (ISTAT POC) 232 mg/dL (70-99); Hemoglobin (POC) 8.5 g/dL (13.5-17.5); Potassium (POC) 4.3 mmol/L (3.5-5.5); Sodium (POC) 133 mmol/L (135-148); Total CO2 (POC) 21 mmol/L (21-32)
[2021-05-24 21:58] LABS: Ethanol (Alcohol), Blood, Med <3 mg/dL
[2021-05-24 22:31] LABS: Alanine Aminotransfer (ALT/SGP 30 U/L (12-78); Albumin, Blood 2.7 g/dL (3.4-5.0); Albumin/Globulin Ratio 0.8 (0.8-1.8); Alk Phos 113 U/L (50-136); Anion Gap 11 mmol/L (6-16); Aspartate Aminotrans (AST/SGOT 44 U/L (12-37); Blood Urea Nitrogen 24 mg/dL (8-24); Bun/Creatinine Ratio 23.5 (12.0-20.0); CO2, Blood 20 mmol/L (21-32); Calcium, Blood 8.1 mg/dL (8.5-10.1); Chloride, Blood 103 mmol/L (98-108); Creatinine, Blood 1.02 mg/dL (0.60-1.20); Globulin, Blood 3.6 g/dL (2.2-4.0); Glomerular Filtration Rate >60 (60-); Glucose, Blood 222 mg/dL (70-99); Magnesium, Blood 1.9 mg/dL (1.6-2.4); Potassium, Blood 4.3 mmol/L (3.5-5.5); Sodium, Blood 134 mmol/L (136-145); Total Protein, Blood 6.3 g/dL (6.4-8.2)
[2021-05-24 23:14] LABS: Acetaminophen, Random <2.0 ug/mL (10.0-30.0); CPK Creatine Kinase 463 U/L (39-308); Salicylate <1.7 mg/dL (2.8-20.0)
[2021-05-24 23:31] LABS: Creatine Kinase MB 3.5 ng/mL (0.0-3.6); Creatine Kinase MB Index 0.8 (0.0-4.0)
[2021-05-25 00:20] LABS: BASOPHILS ABSOLUTE AUTO 0.01 K/mm3 (0.00-0.23); BASOPHILS PERCENT AUTO 0 % (0-2); EOSINOPHILS ABSOLUTE AUTO 0.06 K/mm3 (0.00-0.68); EOSINOPHILS PERCENT AUTO 1 % (0-6); Hematocrit 24.2 % (37.0-53.0); Hemoglobin 8.8 g/dL (13.5-17.5); IMMATURE GRAN ABSOLUTE AUTO 0.03 K/mm3 (0.00-0.10); IMMATURE GRAN PERCENT AUTO 0 % (0-1); LYMPHOCYTES ABSOLUTE AUTO 0.68 K/mm3 (0.84-5.20); LYMPHOCYTES PERCENT AUTO 10 % (21-46); MONOCYTES ABSOLUTE AUTO 0.86 K/mm3 (0.16-1.47); MONOCYTES PERCENT AUTO 12 % (4-13); Mean Corpuscular HGB Conc 36.4 g/dL (31.5-36.5); Mean Corpuscular Volume 93 fL (80-100); Mean Platelet Volume 10.9 fL (9.1-12.4); NEUTROPHILS ABSOLUTE AUTO 5.27 K/mm3 (1.96-9.15); NEUTROPHILS PERCENT AUTO 76 % (41-73); Platelet Count 92 K/mm3 (150-400); RDW Coefficient Variation 11.8 % (11.7-14.2); RDW Standard Deviation 40.2 fL (35.1-46.3); Red Blood Cell Count 2.59 M/mm3 (4.30-5.90); White Blood Cell Count 6.91 K/mm3 (4.00-11.30)
[2021-05-25 01:05] LABS: International Normalized Ratio 1.09; Prothrombin Time Results 11.7 Sec (9.7-11.5)
[2021-05-25 01:07] LABS: SARS-Cov-2 (COVID-19) PCR, MMC NEGATIVE (NEGATIVE)
[2021-05-25 01:39] LABS: Source, Urine Catheter
[2021-05-25 01:43] LABS: U Amphetamine Screen Not Detected; U Barbituate Screen Not Detected; U Benzodiazapine Screen Not Detected; U Buprenorphine Screen Not Detected; U Cannabinoids Screen DETECTED; U Cocaine Screen Not Detected; U Methadone Screen Not Detected; U Methamphetamine Screen Not Detected; U Opiates Screen Not Detected; U Oxycodone Screen Not Detected; U Phencyclidine Screen Not Detected; U Propoxyphene Screen Not Detected
[2021-05-25 01:45] LABS: Appearance, Urine Clear (Clear); Bilirubin, Urine Neg (Neg); Blood, Urine 5+ (Neg); Color, Urine Amber (P-Yellow); Glucose Qualitative, Urine 4+ (Neg); Ketones, Urine 1+ (Neg); Leukocyte Esterase, Urine 1+ (Neg); Nitrite, Urine Neg (Neg); Protein, Urine 2+ (Neg); Specific Gravity, Urine 1.015 (1.003-1.022); Urobilinogen, Urine 1+ (Normal)
[2021-05-25 01:50] LABS: Red Blood Cells, Urine 50-100 /hpf (0-2)
[2021-05-25 01:51] LABS: Bacteria Many /hpf; Mucus Light (0-Heavy); Spermatozoa Few /hpf; Squamous Epithelial Cells Not Seen /hpf (Few)
[2021-05-25 02:48] LABS: Hematocrit 22.6 % (37.0-53.0); Hemoglobin 8.1 g/dL (13.5-17.5)
[2021-05-25 07:43] LABS: Hematocrit 22.1 % (37.0-53.0); Hemoglobin 7.9 g/dL (13.5-17.5)
[2021-05-25 12:02] LABS: Hematocrit 21.8 % (37.0-53.0); Hemoglobin 7.7 g/dL (13.5-17.5)
[2021-05-25 12:29] LABS: Percent Saturation 12.4 % (20.0-50.0)
--- NOTE | 2021-05-25 15:40 | NUR ---
RECEIVED VERBAL PERMISSION TO SPEAK TO PT'S THEODORE , AND HIS DIL LUPE SOPHIA . GAVE UPDATE TO LUPE, BUT UNABLE TO REACH THEODORE AT THIS TIME.
[2021-05-25] MEDS ORDERED: TAMS.4ER PO (17:03)
[2021-05-25 17:24] LABS: Hematocrit 23.4 % (37.0-53.0); Hemoglobin 8.4 g/dL (13.5-17.5)
--- NOTE | 2021-05-25 17:43 | NUR ---
POC GLUCOSE READ > 500. NOTIFIED DR. LEE BY PHONE, RECEIVED ORDER FOR PERIPHERAL BLOOD DRAW, NOW DOSE FOR GLARGINE.
[2021-05-25 18:09] LABS: Glucose, Blood 428 mg/dL (70-99)
--- NOTE | 2021-05-25 19:31 | NUR ---
SHIFT SUMMARY: ASSUMED CARE OF PT UPON HIS ARRIVAL FROM ED AT 1315. A&O X 2, TALKS CONSTANTLY WHILE STAFF IS IN THE ROOM, SPEECH IS PRESSURED AND SUBJECT CHANGES QUICKLY. LUNGS CLEAR, ON RA. TELEMETRY SR 85. C/O DISCOMFORT IN HIS BACK AND BILATERAL RIBS. HAS LARGE DM FOOT ULCER ON L HALLUX; PHOTO IN CHART AND PODIATRY CONSULT MADE. GI CONSULT CALLED, PROVIDER WILL SEE PT EITHER LATER TONIGHT OR TOMORROW MORNING. GAVE TELEPHONE UPDATES TO PT'S AND DAUGHTER IN [place].
[2021-05-25 23:05] LABS: Hematocrit 22.3 % (37.0-53.0)
[2021-05-26 05:05] LABS: BASOPHILS ABSOLUTE AUTO 0.01 K/mm3 (0.00-0.23); BASOPHILS PERCENT AUTO 0 % (0-2); EOSINOPHILS PERCENT AUTO 3 % (0-6); Hematocrit 20.6 % (37.0-53.0); Hemoglobin 7.4 g/dL (13.5-17.5); IMMATURE GRAN ABSOLUTE AUTO 0.01 K/mm3 (0.00-0.10); IMMATURE GRAN PERCENT AUTO 0 % (0-1); LYMPHOCYTES PERCENT AUTO 16 % (21-46); MONOCYTES ABSOLUTE AUTO 0.44 K/mm3 (0.16-1.47); MONOCYTES PERCENT AUTO 12 % (4-13); Mean Corpuscular HGB 34.1 pg (26.0-34.0); Mean Corpuscular HGB Conc 35.9 g/dL (31.5-36.5); Mean Corpuscular Volume 95 fL (80-100); Mean Platelet Volume 11.3 fL (9.1-12.4); NEUTROPHILS PERCENT AUTO 69 % (41-73); Platelet Count 76 K/mm3 (150-400); RDW Coefficient Variation 11.7 % (11.7-14.2); RDW Standard Deviation 41.1 fL (35.1-46.3); Red Blood Cell Count 2.17 M/mm3 (4.30-5.90); White Blood Cell Count 3.76 K/mm3 (4.00-11.30)
[2021-05-26 05:29] LABS: Alanine Aminotransfer (ALT/SGP 21 U/L (12-78); Albumin, Blood 1.9 g/dL (3.4-5.0); Albumin/Globulin Ratio 0.6 (0.8-1.8); Alk Phos 100 U/L (50-136); Anion Gap 7 mmol/L (6-16); Aspartate Aminotrans (AST/SGOT 21 U/L (12-37); Bilirubin, Total 0.5 mg/dL (0.1-1.0); Blood Urea Nitrogen 14 mg/dL (8-24); Bun/Creatinine Ratio 19.4 (12.0-20.0); CO2, Blood 22 mmol/L (21-32); Calcium, Blood 7.4 mg/dL (8.5-10.1); Chloride, Blood 110 mmol/L (98-108); Creatinine, Blood 0.72 mg/dL (0.60-1.20); Globulin, Blood 3.4 g/dL (2.2-4.0); Glomerular Filtration Rate >60 (60-); Glucose, Blood 165 mg/dL (70-99); Potassium, Blood 3.5 mmol/L (3.5-5.5); Sodium, Blood 139 mmol/L (136-145); Total Protein, Blood 5.3 g/dL (6.4-8.2)
--- NOTE | 2021-05-26 07:45 | NUR ---
SHIFT SUMMARY PT REMAINED A HIGH FALL RISK, WITH BED ALARM ON AT NIGHT. PT EXHIBITED CONFUSION AND MADE STATEMENTS THAT WERE NOT LINEAR OR RELEVANT TO THE TOPIC OF CONVERSATION. STATEMENTS ABOUT THE COLORS OF THE RAINBOW, AND HOW HE KNEW HE "WASN'T CRAZY." BRUISE TO LEFT EYE, SCRATCHES ON LEFT ARM. IV IN THE LEFT AC WITH ARM BOARD APPLIED FOR STABILITY.
[2021-05-26 08:26] LABS: BASOPHILS PERCENT MAN 0 % (0-2); EOSINOPHILS PERCENT MAN 0 % (0-6); LYMPHOCYTES ABSOLUTE MAN 0.26 K/mm3 (0.84-5.20); LYMPHOCYTES PERCENT MAN 7 % (21-46); MONOCYTES PERCENT MAN 0 % (4-13); NEUTROPHILS ABSOLUTE MAN 3.49 K/mm3 (1.96-9.15); SEG NEUTROPHILS PERCENT MAN 93 % (41-73); TOTAL CELLS COUNTED 15
--- NOTE | 2021-05-26 11:20 | NUR ---
INTO [facility] VIA GURNEY FROM [facility]. History, Chart, Medications and Allergies reviewed before start of procedure.Patient confirms NPO status, CLEAR LIQUIDS AT 9AM AND NOTHING SINCE, and agrees with scheduled surgery.Lungs clear T/O to Auscultation.
--- NOTE | 2021-05-26 11:21 | NUR ---
IV ACCESS TO LEFT AC 18G.PATENT FLUSHES EASILY.INFUSING LR CURRENTLY.
--- NOTE | 2021-05-26 11:39 | NUR ---
05/26/21 1139 Fela Crowe History, Chart, Medications and Allergies reviewed before start of procedure.MONITOR INTACT WITH CONTINUOUS PULSE OXIMETRY AND INTERMITTENT BP.O2 VIA N/C INTACT THROUGHOUT SEDATION/PROCEDURE. 3-LEAD EKG REVIEWED WITH PHYSICIAN PRIOR TO START OF PROCEDURE.PATIENT DETERMINED TO BE ASA APPROPRIATE FOR PROPOFOL SEDATION PRIOR TO START OF PROCEDURE BY
--- NOTE | 2021-05-26 11:45 | NUR ---
PT TO DAY SURGERY [facility]IA [facility] AT 1100 FOR UPPER ENDOSCOPY.
--- NOTE | 2021-05-26 14:15 | NUR ---
AFTER VISIT FROM DR. SUN, PT BECAME AGITATED, ALMOST VIOLENT. HE REMOVED TELEMETRY AND STATED HE WAS LEAVING, STARTED TO WALK OUT OF ROOM WITH IV ATTACHED TO IVF. Amilcar LEWIS CNA, ATTEMPTED TO STOP PATIENT FROM LEAVING, EXPLAINING THAT HE WAS HERE FOR LOW BLOOD COUNTS AND IT WOULD BE DETRIMENTAL FOR HIM TO LEAVE AT THIS TIME. HE BECAME MORE AGITATED, STATING THAT HE WAS PERFECTLY ABLE TO WALK OUT OF HERE. A CODE PATRICIA WAS CALLED FOR THE PATIENT'S SAFETY. SECURITY ARRIVED, OFFERED PATIENT A W/C TO TAKE HIM OUTSIDE. THIS AUTHOR LEFT MESSAGE FOR DR. LEE TO INFORM OF WHAT HAPPENED. 1422: DR. SUN PLACED PATIENT ON 2 MD HOLD. SECURITY NOTIFIED TO RETURN PT TO THIS UNIT (HE WAS DOWNSTAIRS WAITING FOR FAMILY TO PICK HIM UP); SHOTGUN SHELL LOADING MACHINE OPERATOR Milton STATED THEY WOULD NOT BRING HIM UP, BUT WOULD HAVE POLICE DO THIS INSTEAD.
--- NOTE | 2021-05-26 20:02 | NUR ---
SHIFT SUMMARY: PT INCREASINGLY AGGRESSIVE THIS SHIFT; INSISTING ON LEAVING; 2-MD HOLD INITIATED; PT NOW IN [id number] FOUR-POINT RESTRAINTS. PT CONFUSED; UNCOOPERATIVE WITH CARE. MEDICATED FOR AGITATION PER EMAR. DR ONEAL FOLLOWING. REPORT GIVEN TO ONCOMING RN.
[2021-05-27 05:30] LABS: BASOPHILS ABSOLUTE AUTO 0.01 K/mm3 (0.00-0.23); BASOPHILS PERCENT AUTO 0 % (0-2); EOSINOPHILS PERCENT AUTO 8 % (0-6); Hematocrit 22.2 % (37.0-53.0); Hemoglobin 7.7 g/dL (13.5-17.5); IMMATURE GRAN ABSOLUTE AUTO 0.02 K/mm3 (0.00-0.10); IMMATURE GRAN PERCENT AUTO 0 % (0-1); LYMPHOCYTES ABSOLUTE AUTO 0.55 K/mm3 (0.84-5.20); LYMPHOCYTES PERCENT AUTO 12 % (21-46); MONOCYTES ABSOLUTE AUTO 0.57 K/mm3 (0.16-1.47); MONOCYTES PERCENT AUTO 12 % (4-13); Mean Corpuscular HGB 32.9 pg (26.0-34.0); Mean Corpuscular HGB Conc 34.7 g/dL (31.5-36.5); Mean Corpuscular Volume 95 fL (80-100); Mean Platelet Volume 11.7 fL (9.1-12.4); NEUTROPHILS ABSOLUTE AUTO 3.21 K/mm3 (1.96-9.15); NEUTROPHILS PERCENT AUTO 67 % (41-73); Platelet Count 81 K/mm3 (150-400); RDW Coefficient Variation 11.6 % (11.7-14.2); RDW Standard Deviation 39.8 fL (35.1-46.3); Red Blood Cell Count 2.34 M/mm3 (4.30-5.90); White Blood Cell Count 4.76 K/mm3 (4.00-11.30)
[2021-05-27 05:57] LABS: Alanine Aminotransfer (ALT/SGP 20 U/L (12-78); Albumin/Globulin Ratio 0.6 (0.8-1.8); Alk Phos 99 U/L (50-136); Anion Gap 4 mmol/L (6-16); Aspartate Aminotrans (AST/SGOT 19 U/L (12-37); Bilirubin, Total 0.6 mg/dL (0.1-1.0); Blood Urea Nitrogen 14 mg/dL (8-24); CO2, Blood 26 mmol/L (21-32); Chloride, Blood 110 mmol/L (98-108); Creatinine, Blood 0.67 mg/dL (0.60-1.20); Globulin, Blood 3.4 g/dL (2.2-4.0); Glomerular Filtration Rate >60 (60-); Glucose, Blood 144 mg/dL (70-99); Potassium, Blood 3.3 mmol/L (3.5-5.5); Sodium, Blood 140 mmol/L (136-145); Total Protein, Blood 5.4 g/dL (6.4-8.2)
--- NOTE | 2021-05-27 06:05 | NUR ---
SHIFT SUMMARY PT WAS REMOVED FROM RESTRAINTS AT 0415. HE WAS GIVEN WATER TO DRINK AND OFFERD PO CLEAR LIQUID DIET, WHICH HE DECLINED. PT AMBULATED WITH 2 STAFF ASSIST TO BATHROOM AND VOIDED JENNI COLORED URINE. PT HAD BEEN COOPERATIVE AND CALM WITH STAFF DURING THE ACCOUNT MANAGER. ADVISED PT THAT TO REMAIN SAFE, STAFF WILL TAKE PRECAUTIONS SUCH A BED ALARM AND CAMERA MONITORING. PT AGREES, AND STATES THAT HE IS ABLE TO REMAIN SAFE. RN WILL CONTINUE TO MONITOR AND WILL GIVE REPORT TO ONCOMING NURSE.
[2021-05-27 07:10] LABS: HBSAG SCREEN Negative (Negative); HEP B CORE AB, TOT Negative (Negative); HEP C VIRUS AB <0.1 (0.0-0.9)
--- NOTE | 2021-05-27 08:12 | NUR ---
SHIFT SUMMARY PT'S RESTRAINTS WERE DISCONTINUED AT 0415. FOR THE REMAINDER OF THE SHIFT, PT SLEPT AND REMAINED SAFE. COMPLIANT WITH STAFF. PT MADE STATEMENTS, "I KNOW WHAT I DID AND i'M ASHAMED, I SHOULD BE LOCKED UP." PT STATED, "I HAVE SOME THINGS HAPPEN IN MY LIFE, BUT I GOTTA MOVE PAST THEM." PT REMAINS ON A 2-MD HOLD. SKIN IS ECCHYMOTIC, BRUISES SCATTERED THROUGH OUT. DIABETIC ULCER IS WRAPPED WITH A C/D/I DRESSING AND OIL EMOLSION WOUND DRESSING, SECURED WITH KERLEX. VSS. NO TELE, NO IV ACCESS. BED IN LOWEST POSITION, CALL LIGHT WITHIN REACH.
--- NOTE | 2021-05-27 19:54 | NUR ---
SHIFT SUMMARY: PATIENT INCREASINGLY AGITATED T/O SHIFT; TAT 4-POINT RESTRAINTS INITIATED R/T INCREASING AGITATION & ATTEMPTS TO LEAVE UNIT; ZYPREXA PRN GIVEN FOR AGITATION; FAMILY UPDATED WITH PATIENT CONDITION & PLAN OF CARE. PATIENT XFR FROM ROOM 353 R/T INOPERATIVE REMOTE MONITORING CAMERA. PT REFUSING CARE; VERBALLY ABUSIVE & THREATENING; 2-MD HOLD IN PLACE. REPORT GIVEN TO ONCOMING RN.
--- NOTE | 2021-05-28 07:45 | NUR ---
SHIFT SUMMARY PT IS A 55 Y/O MALE, ADMITTED FOR ANEMIA AND CURRENTLY ON A 2MD HOLD. PT IS VERY CONFUSED AND DIFFICULT TO REORIENT OR REDIRECT, COMBATIVE WITH STAFF, CURRENTLY IN 4 POINT RESTRAINTS. PT REFUSED HIS PM MEDS, AND WAS MEDICATED ONCE WITH IM ZYPREXA FOR AGITATION. PT REFUSING TO USE THE URINAL, BLADDER SCAN THIS AM SHOWED > 700 ML. NO ACUTE CHANGES IN PT CONDITION NOTED DURING THE NIGHT. WILL CONTINUE TO MONITOR AND TREAT PER EMAR UNTIL HAND OFF TO DAY SHIFT RN.
--- NOTE | 2021-05-28 17:25 | NUR ---
PT IS A/OX2, UNCOOPERATIVE AT TIMES. THE PT TODAY HAS REMAINED MOSTLY CALM EXPECT WHEN HE WAS TAKEN OFF OF THE RESTRAINTS TO HELP HIM CLEAN UP AFTER A BM. THE PT BECAME INSTANT THAT HE WAS GOING TO WALK ON OUT NAKED AND SOILED WITH BM. THE PT WAS NOT AGREEABLE TO SHOWER OR GET BACK INTO THE BED AT ALL. INSTEAD HE INSISTED THAT HE WAS LEAVING. SECURITY WAS CALLED THE PT WAS PLACED BACK INTO THE BED AND RESTRAINTS REAPPLIED. WILL CONTINUE TO MONITOR AND ASSESS FOR CHANGES
[2021-05-29 04:55] LABS: Hematocrit 21.8 % (37.0-53.0); Hemoglobin 7.8 g/dL (13.5-17.5)
[2021-05-29 05:17] LABS: Anion Gap 5 mmol/L (6-16); Blood Urea Nitrogen 10 mg/dL (8-24); Bun/Creatinine Ratio 13.4 (12.0-20.0); CO2, Blood 27 mmol/L (21-32); Calcium, Blood 7.9 mg/dL (8.5-10.1); Chloride, Blood 108 mmol/L (98-108); Creatinine, Blood 0.75 mg/dL (0.60-1.20); Glomerular Filtration Rate >60 (60-); Glucose, Blood 176 mg/dL (70-99); Potassium, Blood 3.3 mmol/L (3.5-5.5); Sodium, Blood 140 mmol/L (136-145)
--- NOTE | 2021-05-29 06:31 | NUR ---
SHIFT SUMMARY PT IS A 55 Y/O MALE, ADMITTED FOR ACUTE BLOOD LOSS AND ANEMIA, CURRENTLY ON 2MD HOLD. HE IS A&O X 2, COOPERATIVE WITH CARE AT THIS TIME, CURRENTLY IN 4 POINT RESTRAINTS D/T AGITATION AND COMBATIVE BEHAVIOUR WHENEVER HE IS TAKEN OUT. NO C/O ACUTE PAIN, NAUSEA OR SOB. VITAL SIGNS STABLE. NO ACUTE CHANGES IN PT CONDITION NOTED DURING THE NIGHT. WILL CONTINUE TO MONITOR AND TREAT PER EMAR UNTIL HAND OFF TO DAY SHIFT RN.
--- NOTE | 2021-05-29 18:07 | NUR ---
PT IS A/OX4, CALM AND COOPERATIVE TODAY, THE PT AGREED THAT HE NEEDED TO STAY HERE IN THE HOSPITAL IN THE ROOM UNTIL IT WAS DECIDED THAT HE WOULD BE DISCHARGED. THIS AFTERNOON THE PT WAS RELEASED FROM RESTRAINTS. AND SO FAR HAS BEEN COMPLETLY COOPERATIVE AGREES TO USE THE CALL LIGHT FOR ASSISTANCE TO THE BATHROOM. THE PT IS UP WITH MINIMAL ASSIST. PT APPEARS TO BE BREATHING EASILY ON RA, CALL LIGHT IN REACH, WILL CONTINUE TO MONITOR AND ASSIST FOR CHANGES
[2021-05-30 06:05] LABS: Hematocrit 22.4 % (37.0-53.0); Hemoglobin 7.9 g/dL (13.5-17.5)
[2021-05-30 06:35] LABS: Anion Gap 7 mmol/L (6-16); Blood Urea Nitrogen 8 mg/dL (8-24); Bun/Creatinine Ratio 11.1 (12.0-20.0); CO2, Blood 25 mmol/L (21-32); Calcium, Blood 8.1 mg/dL (8.5-10.1); Chloride, Blood 105 mmol/L (98-108); Creatinine, Blood 0.72 mg/dL (0.60-1.20); Glomerular Filtration Rate >60 (60-); Glucose, Blood 202 mg/dL (70-99); Magnesium, Blood 1.5 mg/dL (1.6-2.4); Phosphorus, Blood 2.6 mg/dL (2.5-4.9); Potassium, Blood 3.8 mmol/L (3.5-5.5); Sodium, Blood 137 mmol/L (136-145)
--- NOTE | 2021-05-30 06:42 | NUR ---
SHIFT SUMMARY PT IS A 55 Y/O MALE, ADMITTED FOR ACUTE BLOOD LOSS. HE IS A&O X 3, SBA IN THE ROOM, PLEASANT AND COOPERATIVE WITH CARE. NO C/O ACUTE PAIN, NAUSEA OR SOB. VITAL SIGNS STABLE. NO ACUTE CHANGES IN PT CONDITION NOTED DURING THE NIGHT. WILL CONTINUE TO MONITOR AND TREAT PER EMAR UNTIL HAND OFF TO DAY SHIFT RN.
--- NOTE | 2021-05-30 18:18 | NUR ---
SHIFT SUMMARY. A&OX3, PLEASANT AND COOPERATIVE. PT DENIES PAIN, SOB, N/V. PT RECIEVED SHOWER, FOOT WOUNDS CLEANSED AND REDRESSED. NEW ORDER FOR IV MAG, AWAITING IV PLACEMENT. NO OTHER CHANGES OR CONCERNS.
[2021-05-31 06:00] LABS: Hematocrit 23.3 % (37.0-53.0); Hemoglobin 8.1 g/dL (13.5-17.5)
[2021-05-31 06:18] LABS: Anion Gap 5 mmol/L (6-16); Blood Urea Nitrogen 11 mg/dL (8-24); Bun/Creatinine Ratio 12.3 (12.0-20.0); CO2, Blood 27 mmol/L (21-32); Calcium, Blood 8.4 mg/dL (8.5-10.1); Chloride, Blood 104 mmol/L (98-108); Creatinine, Blood 0.89 mg/dL (0.60-1.20); Glomerular Filtration Rate >60 (60-); Glucose, Blood 225 mg/dL (70-99); Magnesium, Blood 1.8 mg/dL (1.6-2.4); Potassium, Blood 4.4 mmol/L (3.5-5.5); Sodium, Blood 136 mmol/L (136-145)
--- NOTE | 2021-06-02 03:33 | NUR ---
SHIFT SUMMARY PT PLEASANT AND COOPERATIVE THIS EVENING. ALLOWED FOR COMPLETE ASSESSMENT AND DRESSING CHANGE TO LEFT GREAT TOE. TOOK ALL MEDICATIONS. CAMERA ON. UP INDEPENDENT IN ROOM. VITAL SIGNS STABLE NO ACUTE CHANGES THIS EVENING. WILL CONTINUE TO MONITOR.
--- NOTE | 2021-06-02 12:51 | NUR ---
VERBAL ORDER FROM DR. DUFFY FOR NO IV ACCESS NEEDED
--- NOTE | 2021-06-02 18:43 | NUR ---
EAR WAX NOTE PT HAS VERY IMPACTED EAR WAX AND IS USING EAR WAX SOFTENER TO LOOSEN IT. HE REQUESTED THAT A NOT BE MADE THAT THE NXT TIME IT IS ADMINISTERED NO Q-TIPS BE USED TO LOOSEN THE WAX ITS HURTING HIS EAR CANAL AND THAT THE SOLUTION JUST BE LEFT TO SIT AND THEN WIPED WITH A TISSUE.
--- NOTE | 2021-06-02 18:45 | NUR ---
SHIFT SUMMARY PT. IS UP IN ROOM INDEPENDENT, NE TELE OR IV. HE IS AWARE HE IS ON A MEDICAL HOLD AND IS WAITING PATIENTLY FOR HIS RELEASE. HE HAS PRIOR EPISODES OF ACTING OUT BUT HAS AGREE TO BEHAVE UNTIL HIS HOLD IS OVER AND WAS VERY COMPLAINT TODAY. DENIES PAIN. WILL CONTINUE TO MONITOR.
--- NOTE | 2021-06-03 10:29 | NUR ---
PT RELATIVELY PLEASANT COOP THIS AM. NO C/O PAIN AT THIS TIME. BRUISING NOTED ON FACE, EYES, ARMS, AND FOOT ULCER NOTED. DR ONEAL CALLED AND STATES AT [facility] WORKING ON [employer] AT THIS TIME. PT A/O X2, SOME DETAILS UNCLEAR, H/R REG, NO MURMER NOTED. LUNGS CLEAR, RESP EASY, UNLABORED, ON R.A. PT SITTING UP IN CHAIR EATING BREAKFAST. PT IMD IN ROOM.
--- NOTE | 2021-06-03 17:43 | NUR ---
PT HAS BEEN PLEASNT TODAY. NO NEW CONCERNS NOTED TODAY. NO C/O PAIN. SAT IN CHAIR CLOSE TO DOOR TO DAY TO OBSERVE MORE PERSONAL INTERACTION. GUARDIANSHIP PAPERS GIVEN TODAY. COPY IN CHART. PT IND IN ROOM. BED IN LOW POSITION, CALL LITE IN REACH. EATING DINNER AT THIS TIME.
--- NOTE | 2021-06-04 04:43 | NUR ---
SHIFT SUMMARY A/O, ABLE TO MAKE NEEDS KNOWN. COOPERATIVE WITH CARE. ANSWERS QUESTIONS APPROPRIATELY. C/O PAIN/DISCOMFORT TO R SIDE; STATES RIB FX, BUT DENIES NEED FOR INTERVENTION. INDEPENDENT IN ROOM. PLEASED WITH BM THIS SHIFT; STATES HAD NOT HAD BM SINCE ARRIVAL. NO ACUTE CHANGES NOTED OVERNIGHT. APPEARED TO REST MUCH OF THE NIGHT. BED REMAINS IN LOWEST POSITION. CALL LIGHT AND BELONGINGS WITHIN REACH. CONTINUE WITH CURRENT PLAN OF CARE. REPORT TO ONCOMING RN.
--- NOTE | 2021-06-04 11:00 | NUR ---
PT PLEASANT THIS AM. TALKATIVE. STATES ACCEPTANCE OF PRESENT SITUATION. H/R IRRED, JOSE NOTED. NO TELE. LUNGS CLEAR, RESP EASY, UNLABORED. ON R.A. INDEPENDANT IN ROOM. BED IN LOW POSITION, CALLLITE IN REACH, CALLS APROP
--- NOTE | 2021-06-04 18:35 | NUR ---
PT PLEASANT TODAY. NO C/O PAIN. NO NEW CONCERNS NOTED. WALKING ABOUT ROOM CHOOSES. CALL LITE IN REACH, BED IN LOW POSITION.
--- NOTE | 2021-06-05 05:12 | NUR ---
SHIFT SUMMARY- PT. PLEASANT AND COOPERATIVE WITH CARE. HAD NO COMPLAINTS OF PAIN OR DISCOMFORT T/O THE NIGHT. RESTED QUIETLY IN BED, NO APPARENT DISTRESS NOTED. PT. INDEP IN ROOM, VSS. CALL LIGHT WITHIN REACH AND SIDE RAILS UP2. WILL CONT TO MONITOR.
[2021-06-05 05:20] LABS: Hematocrit 22.8 % (37.0-53.0)
--- NOTE | 2021-06-05 11:24 | NUR ---
report received from [facility] nurse, pt experssed desire to snack on crackers and peanutbutter, dr agreed, said he was doing well dispite the cbg in 200's, pt asked for underwear provided hospital underwear
--- NOTE | 2021-06-05 18:11 | NUR ---
a+o but forgetful and can be very focused, call light in reach no Iv, rm air, looking forward to exchanging clothes tomorrow
--- NOTE | 2021-06-05 19:27 | NUR ---
a+o, report shared with on coming noc nurse, no IV, rm air, call light in reach, looking forward to exchanging clothes on Sunday with at 1100, medicated as prescribed, independant in rm
--- NOTE | 2021-06-06 04:04 | NUR ---
SHIFT SUMMARY A/O, ABLE TO MAKE NEEDS KNOWN. COOPERATIVE WITH CARE. CALLS AND ANSWERS QUESTIONS APPROPRIATELY. INDEPENDENT IN ROOM. NO C/O PAIN/DISCOMFORT. DRSG TO L FOOT CLEANSED AND RE-DRESSED. APPEARED TO REST FOR A FEW HOURS. NO ACUTE CHANGES NOTED OVERNIGHT. BED REMAINS IN LOWEST POSITION. CALL LIGHT AND BELONGINGS WITHIN REACH. CONTINUE WITH CURRENT PLAN OF CARE. REPORT TO ONCOMING RN.
--- NOTE | 2021-06-06 16:53 | NUR ---
SHIFT SUMMARY PT IS AO AND TALKATIVE. PT DENIES PAIN, N/V, SOB. PT HAS A GOOD APPETITE. PT IS INDEPENDENT IN ROOM. NO PROCEDURES DONE THIS SHIFT. PT IS IN BED, CALL LIGHT IN REACH, LOW POSITION.
--- NOTE | 2021-06-07 16:29 | NUR ---
SHIFT SUMMARY PT IS AO. PT DENIES PAIN, N/V, SOB. PT IS COOPERATIVE WITH CARE. PLAN IS FOR POSSIBLE DC TOMORROW. PT APPETITE IS GOOD. PT IS INDEPENDENT IN ROOM. PT IS IN BED, CALL LIGHT IN REACH, LOW POSITION.
--- NOTE | 2021-06-08 06:22 | NUR ---
SHIFT SUMMARRY PATIENT REMAINS ALERT AND VERY TALKATIVE DURING AWAKE PERIODS. LEFT GREAT TOE WOUND DRESSING DONE A ORDERED. NO ACUTE CHANGES THIS SHIFT.
[2021-06-08] MEDS ORDERED: METF500 PO (12:10)
[2021-06-08] MEDS ORDERED: Seroquel Xr50 MG PO (12:11)
[2021-06-08] MEDS ORDERED: INSULANPEN SC (12:11)
[2021-06-08] MEDS ORDERED: QUET200 PO (12:11)
--- NOTE | 2021-06-08 12:31 | NUR ---
PROVIDED PATIENT EDUCATION ON HOW TO ADMINISTER HIS OWN INSULIN. WALKED HIM THROUGH THE ENTIRE PROCESS AND HE ADMINISTERED INSULIN TO HIMSELF. DID WELL.
--- NOTE | 2021-06-08 13:58 | NUR ---
DISCHARGE INSTRUCTIONS GIVEN TO THE PATIENT. ALL QUESTIONS ANSWERED. PRESCRIPTIONS FAXED TO [facility] PER PATIENT REQUEST. PATIENT IN ROOM PREPARING FOR TO MARKETING RESEARCHER FOR DISCHARGE HOME.
--- NOTE | 2021-06-08 14:09 | NUR ---
patient just escorted out in wheel chair by SEAFOOD PROCESSOR at 1405. [facility]
== END 2021-06-08 14:10 | disposition home health service (06) | DRG 378 ==
LOC: ER 20:19 → MEDS 05-25 11:17 → ERHOLD 05-25 11:17 → MEDS 05-25 13:22
PROVIDERS: Emergency Medicine; Internal Medicine; Internal Medicine Gastroenterology; ADMIT Internal Medicine
PROC: 3E0234Z Introduction of Serum, Toxoid and Vaccine into Muscle, Percutaneous Approach (ICD-10-PCS; 2021-05-24)
PROC: 0DB68ZX Excision of Stomach, Via Natural or Artificial Opening Endoscopic, Diagnostic (ICD-10-PCS; 2021-05-26)
PROC: 0DJ08ZZ Inspection of Upper Intestinal Tract, Via Natural or Artificial Opening Endoscopic (ICD-10-PCS; principal; 2021-05-26 11:15)
DX: K29.71 Gastritis, unspecified, with bleeding (principal); D62 Acute posthemorrhagic anemia; I50.32 Chronic diastolic (congestive) heart failure; K76.6 Portal hypertension; F03.91 Unspecified dementia, unspecified severity, with behavioral disturbance; K22.10 Ulcer of esophagus without bleeding; Z20.822 Contact with and (suspected) exposure to COVID-19; D69.6 Thrombocytopenia, unspecified; S05.12XA Contusion of eyeball and orbital tissues, left eye, initial encounter; S40.212A Abrasion of left shoulder, initial encounter; H61.23 Impacted cerumen, bilateral; L97.529 Non-pressure chronic ulcer of other part of left foot with unspecified severity; D50.9 Iron deficiency anemia, unspecified; E11.621 Type 2 diabetes mellitus with foot ulcer; I27.20 Pulmonary hypertension, unspecified; M54.9 Dorsalgia, unspecified; F10.20 Alcohol dependence, uncomplicated; I11.0 Hypertensive heart disease with heart failure; K70.30 Alcoholic cirrhosis of liver without ascites; Z23 Encounter for immunization; G89.29 Other chronic pain; N40.0 Benign prostatic hyperplasia without lower urinary tract symptoms; Z98.890 Other specified postprocedural states; Z79.899 Other long term (current) drug therapy; W19.XXXA Unspecified fall, initial encounter
CPT/HCPCS: 36415; 70450; 73630; 74177; 80047; 80048; 80053; 80069; 81001; 82105; 82140; 82550; 82553; 82607; 82728; 82746; 82947; 83036; 83540; 83550; 83735; 84443; 85014; 85018; 85025; 85610; 85651; 86038; 86140; 86317; 86592; 86704; 86708; 86803; 86850; 86900; 86901; 87070; 87077; 87086; 87147; 87186; 87205; 87340; 88305; 88342; 90471; 90714; 93005; 93010; 93922; 96365; 96375; 99285-25; A9270; C9113; G0480; J0696; J2250; J2704; J7030; J7120; Q9967; U0004